=== PATIENT | female | born 2000 | race African-American/Black ===

== ENCOUNTER → 2018-04-27 | Outpatient (CLI) | payer OTHER ==
[~2018-04-27] MED LIST: ABILIFY5 MG PO; BACTRIM DS 8001 TA1 PO; CELEXA10 MG; MOTRIN600 MG PO; PRILOSEC20 MG PO; PROAIR HFA0.09 MG/AC; SERTRALINE HYD100 MG PO; SINGULAIR10 MG; SYMBICORT1 AER; TRAZODONE50 MG PO; ZANTAC150 MG; ZOFRAN ODT4 MG SL
== END | disposition home or self-care (01) ==
LOC: RAD 09:16
DX: M25.431 Effusion, right wrist (principal)

== ENCOUNTER 2021-02-24 10:27 | Emergency (ER) | payer SELFPAY ==
[~2021-02-24] VITALS: Wt 75.7 kg
[2021-02-24 11:35] LABS: BASO # 0.1 10*3/uL (0.0-0.1); BASO % 0.4 % (0.0-1.0); EOS # 0.2 10*3/uL (0.0-0.4); EOS % 1.4 % (1.0-4.0); HEMATOCRIT 39.8 % (37.0-47.0); LYMPH # 1.7 10*3/uL (1.3-4.4); LYMPH % 11.5 % (27.0-41.0); MEAN CORPUSCULAR HGB 33.8 pg (27.0-31.0); MEAN CORPUSCULAR HGB CONC 34.2 g/dl (33.0-37.0); MEAN PLATELET VOLUME 9.2 fl (9.6-12.3); MONO # 1.4 10*3/uL (0.1-1.0); MONO % 9.9 % (3.0-9.0); NEUT # 11.1 10*3/uL (2.3-7.9); NEUT % 76.5 % (47.0-73.0); PLATELET COUNT AUTOMATED 263 10*3/uL (130-400); RED BLOOD COUNT 4.02 10*6/uL (4.10-5.10); RED CELL DISTRI WIDTH 11.4 % (0-14.5); WHITE BLOOD COUNT 14.5 10*3/uL (4.8-10.8)
[2021-02-24 11:50] LABS: ALBUMIN 3.3 gm/dl (3.1-4.5); ALKALINE PHOSPHATASE 51 U/L (45-117); BUN 8 mg/dl (7-24); CHLORIDE 109 mmol/L (98-107); CREATININE 0.69 mg/dL (0.55-1.02); LIPASE 89 U/L (73-393); POTASSIUM 3.3 mmol/L (3.5-5.1); SGOT/AST 14 IU/L (3-35); SGPT/ALT 22 U/L (12-78); SODIUM 139 mmol/L (136-145); TOTAL PROTEIN 6.6 gm/dL (6.4-8.2)
[2021-02-24 11:52] LABS: BETA-HCG, QUANT < 1.0 mIU/mL (1-3)
[2021-02-24 14:22] LABS: BILIRUBIN Negative (Negative); BLOOD 3+ (Negative); CLARITY Clear (Clear); COLOR Yellow (Yellow); GLUCOSE Negative (Negative); KETONE Trace (Negative); LEUKO ESTERASE Negative (Negative); NITRITE Negative (Negative); PH 7.5 (4.5-8.0); SPECIFIC GRAVITY <= 1.005 (1.001-1.030); UROBILINOGEN 0.2 E.U./dl (0.0-1.0)
[2021-02-24 14:33] LABS: BACTERIA TRACE
[2021-02-24 15:30] VITALS: BP 127/61
[2021-02-24] MEDS ORDERED: VIBRAMYCIN100 MG PO (16:27)
[2021-02-24] MEDS ORDERED: IBUPROFEN600 MG PO (16:34)
== END 2021-02-24 17:05 | disposition home or self-care (01) ==
LOC: ED 10:27
PROVIDERS: Emergency Medicine
DX: N83.299 Other ovarian cyst, unspecified side (principal); Z20.2 Contact with and (suspected) exposure to infections with a predominantly sexual mode of transmission; R10.30 Lower abdominal pain, unspecified; Z87.42 Personal history of other diseases of the female genital tract

== ENCOUNTER → 2021-03-30 | Outpatient (CLI) | payer OTHER ==
[~2021-03-30] MED LIST changes: +IBUPROFEN600 MG PO; +VIBRAMYCIN100 MG PO
== END | disposition home or self-care (01) ==
LOC: COVID19 15:48
PROVIDERS: ATTEND Internal Medicine
DX: Z11.52 Encounter for screening for COVID-19 (principal)

== ENCOUNTER 2024-09-20 18:17 | Emergency (ER) | payer OTHER ==
[~2024-09-20] VITALS: Ht 165.1 cm; Wt 66.2 kg
[2024-09-20 18:17] VITALS: BP 118/70
[2024-09-20] MEDS ORDERED: SODIUM CHLORIDE 0.9% 1,000 ML IV ONE (18:55)
[2024-09-20] MEDS ORDERED: MORPHINE Sulfate 2 MG/ML SYR IV ONE (18:55)
[2024-09-20] MEDS ORDERED: IOHEXOL 300 MG/ML 100 ML VIAL IV ONE (18:55)
[2024-09-20] MEDS ORDERED: Ondansetron Hydrochloride 4 MG/2 ML VIAL IV ONE (18:55)
[2024-09-20] MEDS ORDERED: Ketorolac Tromethamine 15 MG/ML VIAL IV ONE (18:55)
[2024-09-20 19:14] LABS: BASO # 0.1 10*3/uL (0.0-0.1); BASO % 0.5 % (0.0-1.0); EOS # 0.3 10*3/uL (0.0-0.4); EOS % 2.3 % (1.0-4.0); HEMATOCRIT 39.2 % (37.0-47.0); MEAN CELL VOLUME 99.2 fl (81.0-99.0); MEAN CORPUSCULAR HGB 33.4 pg (27.0-31.0); MEAN CORPUSCULAR HGB CONC 33.7 g/dl (33.0-37.0); MEAN PLATELET VOLUME 9.4 fl (9.6-12.3); MONO # 0.9 10*3/uL (0.1-1.0); MONO % 8.5 % (3.0-9.0); NEUT # 6.8 10*3/uL (2.3-7.9); NEUT % 62.9 % (47.0-73.0); PLATELET COUNT AUTOMATED 240 10*3/uL (130-400); RED BLOOD COUNT 3.95 10*6/uL (4.10-5.10); RED CELL DISTRI WIDTH 11.3 % (0-14.5); WHITE BLOOD COUNT 10.8 10*3/uL (4.8-10.8)
[2024-09-20 19:23] LABS: BILIRUBIN Negative (Negative); BLOOD 1+ (Negative); CLARITY Clear (Clear); COLOR Yellow (Yellow); GLUCOSE Negative (Negative); KETONE Trace (Negative); LEUKO ESTERASE Negative (Negative); NITRITE Negative (Negative); PH 5.5 (4.5-8.0); SPECIFIC GRAVITY >= 1.030 (1.001-1.030)
[2024-09-20 19:36] LABS: BACTERIA TRACE; HYALINE CAST 0-2; MUCOUS 2+; WBC 0-2 wbc/hpf (0-5)
[2024-09-20 19:36] LABS: ALKALINE PHOSPHATASE 39 U/L (46-116); BUN 7 mg/dl (9-23); CHLORIDE 106 mmol/L (98-107); POTASSIUM 3.9 mmol/L (3.4-5.1); SGPT/ALT 10 U/L (5-49); TOTAL PROTEIN 6.4 gm/dL (6.0-8.0)
== END 2024-09-20 21:23 | disposition home or self-care (01) ==
LOC: ED 18:17
PROVIDERS: Nurse Practitioner Family
DX: N93.8 Other specified abnormal uterine and vaginal bleeding (principal); Z87.42 Personal history of other diseases of the female genital tract; R10.30 Lower abdominal pain, unspecified

== ENCOUNTER 2025-01-31 18:16 | Emergency (ER) | payer OTHER ==
[~2025-01-31] VITALS: Ht 165.1 cm; Wt 68.0 kg
[2025-01-31] MEDS ORDERED: AMOXICILLIN500 M3 PO (18:39)
[2025-01-31] MEDS ORDERED: OCUFLOX 5 ML5 ML OT (18:39)
[2025-01-31] MEDS ORDERED: AMOXICILLIN 500 MG CAP PO ONE (18:40)
== END 2025-01-31 18:52 | disposition home or self-care (01) ==
LOC: ED 18:16
DX: H60.92 Unspecified otitis externa, left ear (principal)